=== PATIENT | male | born 1995 | race Two or more races ===

== ENCOUNTER 2019-02-12 17:09 | Emergency (ER) | payer MEDICAID ==
[~2019-02-12] VITALS: Ht 175.3 cm; Wt 111.0 kg
[2019-02-12 17:26] VITALS: BP 147/85
[2019-02-12] MEDS ORDERED: FAMOTIDINE 20 MG TABLET PO ONE (18:00)
--- NOTE | 2019-02-12 18:00 | NUR ---
PT HAS CRACKED HANDS WITH ERYTHEMA AND STATES IT IS AT HIS ELBOWS AND THAT HIS EYES ARE BURNING AND ITCHY WITH SOME FLAKY SKIN NOTED FACE.
[2019-02-12] MEDS ORDERED: PLEASE ENTER ALLERGIES MC SCH (18:03)
[2019-02-12] MEDS ORDERED: FAMOTIDINE 20 MG TABLET ONE (18:03)
--- NOTE | 2019-02-12 18:40 | NUR ---
PT STATES HIS EYES FEEL BETTER SINCE MEDICATED. GIVEN DISCHARGE INSTRUCTIONS AND AMBULATED TO D/C WINDOW, STEADY GAIT
== END 2019-02-12 18:42 | disposition home or self-care (01) ==
LOC: ED 18:10
DX: T78.40XA Allergy, unspecified, initial encounter (principal); L20.84 Intrinsic (allergic) eczema
CPT/HCPCS: 99284; J7512; Q0177

== ENCOUNTER 2019-04-24 15:49 | Emergency (ER) | payer MEDICAID ==
[~2019-04-24] VITALS: Ht 175.3 cm; Wt 103.6 kg
[2019-04-24 15:50] VITALS: BP 129/92
== END 2019-04-24 16:29 | disposition home or self-care (01) ==
LOC: ED 16:09
DX: L20.84 Intrinsic (allergic) eczema (principal)
CPT/HCPCS: 99283; J7512